=== PATIENT | female | born 2000 | race Hispanic/Latino ===

== ENCOUNTER 2020-12-26 19:15 | Inpatient (IN) | payer MEDICAID, OTHER, SELFPAY ==
[~2020-12-26 19:15] MED LIST: Bupivacaine HCl 0.25%/Epi 0.0005/PF 10 ML VIAL FS ONE
[2020-12-27] MEDS ORDERED: Lidocaine 1% (PF) 30 ML VIAL SC PRN (00:07)
[2020-12-27] MEDS ORDERED: Ondansetron PF 4 MG/2 ML Vial IVP PRN ×3 (00:07→17:32)
[2020-12-27] MEDS ORDERED: Ibuprofen 800 MG TAB PO PRN (00:07)
[2020-12-27] MEDS ORDERED: hydrALAZINE 20 MG/ML VIAL SLOW IVP PRN ×2 (00:07→17:32)
[2020-12-27] MEDS ORDERED: Misoprostol 200 MCG TAB PR PRN (00:07)
[2020-12-27] MEDS ORDERED: Diphenoxylate HCl/Atropine Tablet PO PRN (00:07)
[2020-12-27] MEDS ORDERED: HYDROcodone/Acetaminophen 5/325 mg Tablet PO PRN (00:07)
[2020-12-27] MEDS ORDERED: Promethazine HCl 25 MG/ML VIAL IM PRN ×3 (00:07→17:32)
[2020-12-27] MEDS ORDERED: Methylergonovine 0.2 MG/ML VIAL IM PRN (00:07)
[2020-12-27] MEDS ORDERED: Carboprost 250 MCG/ML AMP IM PRN (00:07)
[2020-12-27] MEDS ORDERED: NS w/ Oxytocin 30 units 500 ML IV PRN (00:32)
[2020-12-27] MEDS: Lactated Ringer's 1,000 ML IV SCH ×3 (00:55→12:12)
[2020-12-27 01:25] LABS: Mean Corpuscular HGB CONC 34.8 g/dL (32.0-36.0); Mean Corpuscular Volume 89.2 fL (78.0-98.0); Mean Platelet Volume 9.3 fL (7.4-10.4); Platelet Count 181 thou/uL (130-400); RBC Distribution Width 12.2 % (11.5-14.5); White Blood Cell (WBC) Count 7.5 thou/uL (4.8-10.8)
[2020-12-27] MEDS: Misoprostol 100 MCG TAB VAG SCH ×4 (01:55→19:20)
[2020-12-27 01:56] LABS: Hep B Surf Ag Non-Reactive S/CO (NonReactive)
[2020-12-27 04:34] LABS: Syphilis Antibody Nonreactive (Nonreactive); Syphilis Antibody Index 0.03 S/CO (<1.00 Non-Reactive)
[2020-12-27 04:36] VITALS: BMI 31.4
[2020-12-27] MEDS: Butorphanol Tartrate 1 MG/ML VIAL SLOW IVP PRN ×2 (07:53→09:58)
[2020-12-27] MEDS ORDERED: NS w/ Oxytocin 30 units 500 ML ONE (09:26)
[2020-12-27] MEDS ORDERED: Fentanyl 4 mcg/Bup 0.1% Cadd 100 ML ONE (11:10)
[2020-12-27] MEDS ORDERED: Acetaminophen 325 MG TAB PO PRN (11:48)
[2020-12-27] MEDS ORDERED: diphenhydrAMINE 50 MG/ML VIAL IVP PRN (11:48)
[2020-12-27] MEDS ORDERED: ePHEDrine 50 MG/ML VIAL SLOW IVP PRN (11:48)
[2020-12-27] MEDS ORDERED: Naloxone HCl 0.4 mg/ml Vial IVP PRN ×2 (11:48)
[2020-12-27] MEDS ORDERED: Lactated Ringer's 500 ML IV PRN (11:48)
[2020-12-27] MEDS ORDERED: Fentanyl 4 mcg/Bupivacaine 0.1% Cassette 100 ML EPIDURAL SCH (12:00)
[2020-12-27] MEDS ORDERED: Communication Order-Pharmacy FS SCH (12:00)
[2020-12-27] MEDS ORDERED: diphenhydrAMINE 25 MG CAP PO PRN (17:32)
[2020-12-27] MEDS ORDERED: Milk Of Magnesia 30 ML UDCUP PO PRN (17:32)
[2020-12-27] MEDS ORDERED: Bisacodyl 10 MG SUPP PR PRN (17:32)
[2020-12-27] MEDS ORDERED: Benzocaine-Menthol 82.5 ML CAN TOP PRN (17:32)
[2020-12-27] MEDS ORDERED: Lanolin Ointment 7 GM TUBE TOP PRN (17:32)
[2020-12-27] MEDS ORDERED: NS w/ Oxytocin 30 units 500 ML IVPB SCH (17:45)
[2020-12-27] MEDS: HYDROcodone/Acetaminophen 5/325 mg Tablet PO PRN (21:30)
[2020-12-27] MEDS: Docusate Calcium (SURFAK) 240 MG CAP PO SCH (21:31)
[2020-12-27] MEDS: Ibuprofen 800 MG TAB PO SCH (22:04)
[2020-12-28] MEDS: Ferrous Sulfate 325 MG TAB PO SCH ×2 (07:42→15:23)
[2020-12-28] MEDS ORDERED: Adacel (T-DAP) 0.5 ML SYRINGE IM ONE (09:00)
[2020-12-28] MEDS: Prenatal Vitamin 1 TAB PO SCH (10:35)
[2020-12-28] MEDS: Docusate Calcium (SURFAK) 240 MG CAP PO SCH ×2 (10:35→21:32)
[2020-12-28] MEDS: Ibuprofen 800 MG TAB PO SCH ×3 (10:36→21:32)
[2020-12-28] MEDS: HYDROcodone/Acetaminophen 5/325 mg Tablet PO PRN ×2 (12:35→16:44)
[2020-12-29] MEDS: HYDROcodone/Acetaminophen 5/325 mg Tablet PO PRN ×3 (00:12→17:59)
[2020-12-29] MEDS: Ibuprofen 800 MG TAB PO SCH ×2 (05:12→14:15)
[2020-12-29] MEDS: Ferrous Sulfate 325 MG TAB PO SCH ×2 (07:52→18:01)
[2020-12-29 08:06] VITALS: BP 119/83; TEMP 98.3
[2020-12-29] MEDS: Prenatal Vitamin 1 TAB PO SCH (09:14)
[2020-12-29] MEDS: Docusate Calcium (SURFAK) 240 MG CAP PO SCH (09:14)
== END 2020-12-29 19:07 | disposition home or self-care (01) | DRG 807 ==
LOC: L&D 23:37 → 3SW 12-27 21:59
PROVIDERS: ADMIT Family Medicine; ATTEND Family Medicine
PROC: 10E0XZZ Delivery of Products of Conception, External Approach (ICD-10-PCS; principal; 2020-12-26)
PROC: 0W8NXZZ Division of Female Perineum, External Approach (ICD-10-PCS; 2020-12-26)
DX: O80 Encounter for full-term uncomplicated delivery (principal); Z37.0 Single live birth; Z20.822 Contact with and (suspected) exposure to COVID-19; Z3A.40 40 weeks gestation of pregnancy
CPT/HCPCS: 36415; 51702; 85027; 86780; 86850; 86900; 86901; 87340; J0595; J2001; J2405; J2590